=== PATIENT | female | born 1985 | race Caucasian/White ===

== ENCOUNTER 2017-10-06 14:53 | Emergency (ER) | END 2017-10-06 17:23 | disposition home or self-care (01) ==

== ENCOUNTER 2018-02-10 09:23 | Outpatient (CLI) | END 2018-02-10 11:50 | disposition home or self-care (01) ==

== ENCOUNTER 2018-03-16 18:15 | Outpatient (CLI) | END 2018-03-17 | disposition home or self-care (01) ==

== ENCOUNTER 2018-03-30 10:10 | Outpatient (CLI) | END 2018-03-30 15:20 | disposition home or self-care (01) ==

== ENCOUNTER 2018-05-02 01:22 | Inpatient (IN) | payer OTHER ==
[~2018-05-02] VITALS: Ht 160 cm; Wt 97.0 kg
[2018-05-02 01:36] VITALS: Ht 160 cm; Wt 97.0 kg
[2018-05-02 01:37] VITALS: BP 124/73; PULSE 86; RESP 16
[2018-05-02] MEDS ORDERED: LACTATED RINGER'S 1,000 ML IV PRN (01:48)
[2018-05-02] MEDS ORDERED: OXYTOCIN 30 UNITS/LR 500 ML IV PRN ×2 (02:00→22:30)
[2018-05-02] MEDS ORDERED: BUTORPHANOL 2 MG INJ IV PRN (02:00)
[2018-05-02] MEDS ORDERED: CARBOPROST 250 MCG INJ IM PRN ×2 (02:00→22:30)
[2018-05-02] MEDS ORDERED: METHYLERGONOVINE 0.2 MG INJ IM PRN ×2 (02:00→22:30)
[2018-05-02] MEDS ORDERED: AMPICILLIN 2 GM/NS (PMX) 100 ML IV ONE (02:00)
[2018-05-02] MEDS ORDERED: LIDOCAINE 1% (MPF) 30 ML INJ INJ PRN (02:00)
[2018-05-02] MEDS ORDERED: OXYTOCIN 30 UNITS/LR 500 ML IV SCH ×3 (02:00→22:28)
[2018-05-02] MEDS ORDERED: IBUPROFEN 600 MG TAB PO PRN (02:00)
[2018-05-02] MEDS ORDERED: MISOPROSTOL 200 MCG TAB PR PRN ×2 (02:00→22:30)
[2018-05-02] MEDS: LACTATED RINGER'S 1,000 ML IV SCH ×4 (02:28→21:44)
[2018-05-02] MEDS: AMPICILLIN 1 GM/NS (PMX) 50 ML IV SCH ×3 (07:16→14:00)
[2018-05-02] MEDS ORDERED: MINERAL OIL LIGHT 10 ML VIAL ONE (15:46)
[2018-05-02] MEDS ORDERED: MINERAL OIL LIGHT 10 ML VIAL TOP PRN (16:00)
--- NOTE | 2018-05-02 19:27 | PREOPHP ---
DATE OF ADMISSION: 05/02/2018 HISTORY OF PRESENT ILLNESS: Ms. Beronica Aguilar is a 32-year-old 5, para 3, EDC 05/04/2018, intrauterine at 39 weeks and 5 days gestational age, presented this md physician dermatologist complaining of contractions. She was found to be 4 cm dilated, 50% effaced, -2 station. She had an estimated weight of 4307 grams. The patient was counseled in detail the risk of increased shoulder dystocia. However, the patient declined and desires to attempt a vaginal delivery. She had her care at [facility]. PAST MEDICAL HISTORY: Obese. MEDICATIONS: vitamins. PAST SURGICAL HISTORY: None. OBSTETRICAL HISTORY: x3 vaginal delivery, x1 missed AB. GYNECOLOGIC HISTORY: 12, regular 3 to 4 days. Denies any sexually transmitted disease. Sexually active with 1 partner. SOCIAL HISTORY: Denies any smoking, drugs or alcohol. FAMILY HISTORY: None. REVIEW OF SYSTEMS: All within normal except history of present illness. PHYSICAL EXAMINATION: HEENT: Within normal. LUNGS: CTA bilateral. CARDIOVASCULAR: S1, S2, regular rate, rhythm. ABDOMEN: Gravid, nontender. Negative CVA bilateral. EXTREMITIES: Negative edema. No calf tenderness. PELVIC: Vaginal exam: 8 cm dilated, 80% effaced, -2 station. Artificial rupture of membranes, clear. heart tracing category 1. [place]: Occasional contractions. ASSESSMENT: Intrauterine at 39 weeks and 5 days gestational age, in labor with suspected macrosomia. The patient declined delivery. After the risks, benefits and alternatives explained including but not limited to risk of shoulder dystocia. PLAN: Anticipated vaginal delivery. Shoulder dystocia precautions. Dictated By: ANISH MANN/ENDER Conf#: [id number] DID#: [id number] MTDD
--- NOTE | 2018-05-02 21:25 | PREAC ---
Date/Time of Note Date/Time of Note DATE: 05/02/18 TIME: 21:24 Anesthesia Eval and Record Evaluation Time Pre-Procedure Interview DATE: 05/02/18 TIME: 21:24 Age 32 Sex female NPO: 8 hrs Preoperative diagnosis IUP Planned procedure L&D Past Medical History Past Medical History: None Surgery & Anesthesia Issues No known issue Meds Anticoagulation: No Beta Timothy within 24 hr: No Reason Beta Timothy not given: Pt. not on B-Timothy No Active Prescriptions or Reported Meds Current Medications Lactated Ringer's 1,000 ml @ 125 mls/hr Q8H IV Last administered on 05/02/18at 17:59; Admin Dose 125 MLS/HR; Start 05/02/18 at 01:48 Butorphanol Tartrate (Stadol) 2 mg Q2H PRN IV PAIN; Start 05/02/18 at 02:00 Lidocaine (Xylocaine 1% (Mpf)) 30 ml ONCE PRN INJ EPISIOTOMY; Start 05/02/18 at 02:00 Oxytocin/Lactated Ringer's 500 ml @ 500 mls/hr ONCE POST IV ; Start 05/02/18 at 02:00 Oxytocin/Lactated Ringer's 500 ml @ 125 mls/hr POST IV ; Start 05/02/18 at 02:00 Ibuprofen (Motrin) 600 mg ONCE PRN PO PAIN LEVEL 1-5; Start 05/02/18 at 02:00 Lactated Ringer's 1,000 ml @ 2,000 mls/hr Q30M PRN IV ANESTHESIA; Start 05/02/18 at 01:48 Oxytocin/Lactated Ringer's 500 ml @ 0 mls/hr ONCE PRN IV VAGINAL BLEEDING; Start 05/02/18 at 02:00 Methylergonovine Maleate (Methergine) 0.2 mg ONCE PRN IM VAGINAL BLEEDING; Start 05/02/18 at 02:00 Carboprost Tromethamine (Hemabate) 250 mcg ONCE PRN IM VAGINAL BLEEDING; Start 05/02/18 at 02:00 Misoprostol (Cytotec) 1,000 mcg ONCE PRN MI VAGINAL BLEEDING; Start 05/02/18 at 02:00 Mineral Oil (Muri-Lube) PRN PRN TOP Vaginal delivery; Start 05/02/18 at 16:00 Meds reviewed: Yes Allergies Coded Allergies: No Known Drug Allergy (Verified Allergy, Unknown, 10/02/11) Allergies Reviewed: Yes Labs/Studies Labs Reviewed: Reviewed by anesthesiologist Result Diagram: 05/02/18 0205 Laboratory Tests 05/02/18 02:05 Blood Bank Test 05/02/18 02:05 Antibody Screen NEGATIVE Blood Type B POSITIVE Rh Immune Globulin Candidate NO test: Positive Studies: ECG Pre-procedure Exam Last vitals Vital Signs Date Temp Pulse Resp B/P (MAP) Pulse Ox O2 O2 Flow FiO2 Time Delivery Rate 05/02/18 97.9 86 16 124/73 Room Air 01:37 (90) Airway: Adequate mouth opening, Adequate thyromental dist Mallampati: Mallampati II Teeth: Normal Lung: Normal Heart: Normal ASA Physical Status ASA physical status: 2 Emergency: None Planned Anesthetic Neuraxial: Epidural Planned Pain Management Epidural Pre-operative Attestations Prior to commencing anesthesia and surgery, the patient was re-evaluated, there was verification of: *The patient's identity *The results of appropriate recent lab work and preoperative vital signs *The above evaluation not changing prior to induction *Anesthetic plan, risk benefits, alternative and complications discussed with patient/family; questions answered; patient/family understands, accepts and wishes to proceed. CIRILO GARCIA MD May 02, 2018 21:25
[2018-05-02] MEDS ORDERED: FENTAnyl 2MCG/ML-ROPIV 0.2% 100 ML ONE (21:27)
[2018-05-02] MEDS ORDERED: DIPHENHYDRAMINE 50 MG INJ IV PRN (21:30)
[2018-05-02] MEDS ORDERED: ONDANSETRON 4 MG INJ IV PRN ×2 (21:30→22:30)
[2018-05-02] MEDS ORDERED: NALOXONE (0.4 MG/ML) INJ IV PRN (21:30)
[2018-05-02] MEDS ORDERED: FENTAnyl 2MCG/ML-ROPIV 0.2% 100 ML BAG EPI SCH (21:30)
--- NOTE | 2018-05-02 22:28 | LDN ---
Date/Time of Note Date/Time of Note DATE: 05/02/18 TIME: 22:27 Delivery Summary Weeks of Gestation 39 Placenta Delivered: Spontaneously Meconium: none Episiotomy: No Perineal laceration: 1 Laceration repair: 1st degree perineal laceration repair with 3-0 chromic Anesthesia type: Epidural Estimated blood loss: 250 Sponge & Needle done & correct: Yes All needle counts correct: Yes Any foreign bodies felt in the: No Delivery Information Sex Infant Sex: female Apgars 1 Minute: 8 5 Minute: 9 Suctioning Nose & mouth suctioned at juanita: No Delee suction performed: No Umbilical Cord Umbilical cord with: 3 Vessels Cord presentations: no nuchal cord Cord Blood was obtained: Yes ANISH CHIN MD May 02, 2018 22:28
[2018-05-02] MEDS ORDERED: LANOLIN HPA 1 PKT TOP PRN (22:30)
[2018-05-02] MEDS ORDERED: NACL 0.9% 3 ML SYG IV SCH (22:30)
[2018-05-02] MEDS ORDERED: OXYCODONE/ASPIRIN (4.88/325) TAB PO PRN ×2 (22:30)
--- NOTE | 2018-05-02 23:22 | DELSUM ---
Delivery Summary A-C Datetime Report Generated by CPN: 05/02/2018 23:22 DELIVERY PERSONNEL Pharmaceutical Scientist: Newman, Coby MATERNAL INFORMATION Delivery Anesthesia: Epidural Medications in Delivery: 30 UNIT PITOCIN Delivery QBL (ml): 250 Placenta Cultured: No Maternal Complications: None LABOR SUMMARY EDC: 05/04/2018 00:00 No. Babies in Womb: 1 Attempted: No Labor Anesthesia: Epidural LABOR INFORMATION Reason for Induction: Not Applicable Onset of Labor: 05/02/2018 01:00 Complete Dilatation: 05/02/2018 22:02 Oxytocin: N/A Group B Beta Strep: Negative Antibiotics # of Doses: 0 Steroids Given: None Reason Steroids Not Administered: Not Applicable MEMBRANES Membranes Rupture Method: Artificial Rupture of Membranes: 05/02/2018 19:01 Length of Rupture (hr): 3.25 Amniotic Fluid Color: Clear Amniotic Fluid Amount: Copious Amniotic Fluid Odor: Normal STAGES OF LABOR Stage 1 hr: 21 Stage 1 min: 2 Stage 2 hr: 0 Stage 2 min: 14 Stage 3 hr: 0 Stage 3 min: 2 Total Time in Labor hr: 21 Total Time in Labor min: 18 VAGINAL DELIVERY Episiotomy: None Laceration Extension: First Degree Laceration Type: Perineal Laceration Repair: Yes Initial Vag Sponge Count: 10 Final Vag Sponge Count: 10 Initial Vag Sharps Count: 1 Final Vag Sharps Count: 2 Sponge Count Correct: Yes; Vaginal Sweep Performed Sharps Count Correct: Yes BABY A INFORMATION Delivery Date/Time: 05/02/2018 22:16 Method of Delivery: Vaginal Method of Delivery: Vaginal Born in Route : No : N/A Forceps: N/A Vacuum Extraction: N/A Shoulder Dystocia : N/A SHOULDER DYSTOCIA BABY A Delivery Date/Time: 05/02/2018 22:16 PRESENTATION/POSITION BABY A Presentation: Cephalic Cephalic Presentation: Vertex Vertex Position: Left Occipital Anterior Breech Presentation: N/A PLACENTA INFORMATION BABY A Placenta Delivery Time : 05/02/2018 22:18 Placenta Method of Delivery: Spontaneous Placenta Status: Delivered SCORES BABY A Heart Rate 1 min: >100 bpm Resp Effort 1 min: Good Cry Reflex Irritability 1 min: Cough/Sneeze/Pulls Away Muscle Tone 1 min: Active Motion Color 1 min: Blue/Pale Resuscitation Effort 1 min: Tactile Stimulation SCORE 1 MIN: 8 Heart Rate 5 min: >100 bpm Resp Effort 5 min: Good Cry Reflex Irritability 5 min: Cough/Sneeze/Pulls Away Muscle Tone 5 min: Active Motion Color 5 min: Body [place], Extremit Blue Resuscitation Effort 5 min: Tactile Stimulation SCORE 5 MIN: 9 INFORMATION BABY A Gestational Age at Delivery: 39.5 Gestational Status: Full Term- 39- 40.6 Weeks Outcome : Liveborn Infant Condition : Stable Sex: Female Infant Sex: Female IDENTIFICATION/MEDS BABY A ID Band Number: [id number] ID Band Location: Right Leg; Left Arm Sensor Applied: Yes Sensor Number: [id number] Sensor Location : Cord Clamp Vitamin K Given : Not Given Erythromycin Given: Not Given WEIGHT/LENGTH BABY A Infant Birthweight (gm): 4565 Weight (lb): 10 Weight (oz): 1 Length (in): 22.50 Infant Length (cm): 57.15 CORD INFORMATION BABY A No. Cord Vessels: 3 Nuchal Cord : N/A Cord Blood Taken: Yes Infant Suction: Mouth; Nose ASSESSMENT BABY A Complications: None Physical Findings at Delivery: Within Normal Limits Infant Respirations: Appears Normal Riding Double/ALS Called : No Care By: Jaime ALEGRE; NICU RT/RN Transferred To: Remains with Mother
[2018-05-03] VITALS (7 sets, daily range): BP systolic 105–148; BP diastolic 61–71; PULSE 64–90; RESP 17–20
[2018-05-03] MEDS: WITCH HAZEL/GLYCERIN PAD PR PRN ×2 (01:47→17:18)
--- NOTE | 2018-05-03 02:22 | PAC ---
Date/Time of Note Date/Time of Note DATE: 05/03/18 TIME: 02:21 Post-Anesthesia Notes Post-Anesthesia Note Last documented vital signs Vital Signs Date Temp Pulse Resp B/P (MAP) Pulse Ox O2 O2 Flow FiO2 Time Delivery Rate 05/03/18 98.6 74 18 141/67 Room Air 01:00 (91) Activity: WNL Respiratory function: WNL Cardiovascular function: WNL Mental status: Baseline Pain reasonably controlled: Yes Hydration appropriate: Yes Nausea/Vomiting absent: Yes Comments BP:110/56,pulse:78, spo2:100%, T:98,8 CIRILO GARCIA MD May 03, 2018 02:22
--- NOTE | 2018-05-03 04:19 | NUR ---
EOSS v/s stable, fundus firm & contracted, moderate lochia, voided 2x , pain controlled with norco & motrin po, bonding well with baby, for cbc today.
[2018-05-03] MEDS: IBUPROFEN 600 MG TAB PO SCH ×5 (05:45→23:31)
[2018-05-03] MEDS: SENNA/DOCUSATE NA (8.6MG/50MG) TAB PO SCH ×2 (09:00→22:03)
[2018-05-03] MEDS: MAGNESIUM HYDROXIDE 30ML CUP PO SCH ×2 (09:00→22:03)
[2018-05-03] MEDS ORDERED: BENZOCAINE 20% 56 ML SPRAY TOP PRN (17:30)
--- NOTE | 2018-05-03 17:56 | PN ---
Date/Time of Note Date/Time of Note DATE: 05/03/18 TIME: 17:55 OB Subjective Subjective Subjective PPD# 1 Patient is doing well. She denies nausea, vomiting, shortness of breath, chest pain, headache. She has been ambulating without difficulty, tolerating regular diet. Pain is well controlled on current medications OB Objective Objective Objective Vital Signs Date Temp Pulse Resp B/P (MAP) Pulse Ox O2 O2 Flow FiO2 Time Delivery Rate 05/03/18 98.3 84 18 105/61 16:05 (76) 05/03/18 Room Air 12:45 General: AAO X 3, comfortable, NAD, appropriate mood and affect. ABD: +BS. Soft, non-tender. Uterus 2 cm below umbilicus Flank: No CVA tenderness (B/L) LE: Mild edema. No clubbing, cyanosis, thigh or calf tenderness (B/L). Homans 'sign is negative OB Assessment/Plan Other plan: 32-year-old s/p normal vaginal delivery at 39 weeks and 5 days. PPD#1 - AF, VSS - Baby is doing well, at bed side. She is bonding well - Continue current management - PIPER LIZARRAGA May 03, 2018 17:56
--- NOTE | 2018-05-03 18:32 | NUR ---
EOSS: VSS, BREAST FEEDING WITH MINIMAL ASSISTANCE. FUNDUS REMAINS FIRM WITH SMALL AMOUNT OF LOCHIA. BONDING WELL WITH BABY. PT. ABLE TO DO SELF AND BABY CARE WITH MINIMAL ASSISTANCE.
[2018-05-04 03:30] VITALS: BP 110/56; PULSE 71; RESP 19
[2018-05-04] MEDS: IBUPROFEN 600 MG TAB PO SCH ×3 (05:37→18:14)
--- NOTE | 2018-05-04 05:48 | NUR ---
EOSS: vital signs stable,voiding without difficulty,lochia small amount,bonding well with her baby,pain controlled with motrin,hourly rounding and rounding every 30 minutes between [id number] maintained.
--- NOTE | 2018-05-04 08:01 | NUR ---
rn called dr. johansen and informed him btl consent form on chart. dr. johansen states pt. will have btl in 6 [address] clinic[address] dr. johansen states he will come later today to d/c pt. rn informed pt. of poc and she verbalizes understanding. h/l removed tip intact and no complications. pt. on demand. pt. denies any complaints and distress at this time.
[2018-05-04 08:30] VITALS: BP 102/59; PULSE 73; RESP 18
[2018-05-04] MEDS: SENNA/DOCUSATE NA (8.6MG/50MG) TAB PO SCH (10:04)
[2018-05-04] MEDS: MAGNESIUM HYDROXIDE 30ML CUP PO SCH (10:04)
[2018-05-04 12:31] VITALS: BP 103/54; PULSE 79; RESP 20
--- NOTE | 2018-05-04 14:05 | NUR ---
rn continue to do hourly rounding and pt. denies any distress at this time. pt. continues to breastfeed on demand. pt. expected to d/c home today. rn continue w/ rounding to do p.p. education
[2018-05-04 15:52] VITALS: BP 100/55; PULSE 72; RESP 20
--- NOTE | 2018-05-04 17:06 | PD.PPDC ---
SIFTING OPERATOR Discharge Instruction Condition Ydnko2Hg Patient Condition: Lyuox4b Fair Diet Imldp2Ra Diet: Xtikf0u Resume Regular Diet Activity/Restrictions [id number] Activity: [id number] Normal Activity May Shower [id number] Restrictions: [id number] No Exercising No Lifting No Driving No Sexual Activity Nothing in the Vagina No [place] No Tampons, douche Wound/Drain Care Instructions [id number] Wound/Drain Care Instructions: [id number] Wash with soap and water Keep clean and dry Follow-up Follow-up with Physician: 3, Week/Weeks Return to clinic for Gmiig2Vq ASSOCIATE PROFESSOR OF THEATRE Instructions: Kttax8m Fever greater than 101 Chills Worsening abdominal pain Excessive Vaginal Bleeding More than 2 pads per hour Unable to tolerate diet [id number] OB Instructions: Hlexr7u Breast Tenderness Depression Blurried Vision Headache [id number] Surgical Instructions: [id number] Incisional Drainage Incisional Redness ANISH CHIN MD May 04, 2018 17:05
--- NOTE | 2018-05-04 17:07 | DS ---
Date/Time of Note Date/Time of Note DATE: 05/04/18 TIME: 17:06 Obstetrical Discharge Record Final Diagnosis Final Diagnosis: Term delivered Vaginal Delivery Obstetrical Delivery: Spontaneous Condition on Discharge Physical Assessment Last Vitals: stable afebrile Voiding: Yes Bowel Movement: Yes Breast: Soft, non-tender, Filling Fundus: Firm Calf Tenderness: No Patient Condition: ANISH Newell MD May 04, 2018 17:07
--- NOTE | 2018-05-04 17:43 | NUR ---
full d/c instruction rvwd. w/ pt. and fob. reference to mother/baby booklet for instructions. pt. will f/u next week w/ dr. sarkar
--- NOTE | 2018-05-04 20:00 | NUR ---
Pt was d/c home with baby in stable condition.
== END 2018-05-04 20:00 | disposition home or self-care (01) | DRG 807 ==
LOC: OBT 01:22 → L-D 01:25 → OBT 01:45 → L-D 01:45 → PP1 23:54
PROVIDERS: ADMIT Obstetrics & Gynecology; ATTEND Obstetrics & Gynecology
PROC: 10E0XZZ Delivery of Products of Conception, External Approach (ICD-10-PCS; principal; 2018-05-02)
PROC: 0HQ9XZZ Repair Perineum Skin, External Approach (ICD-10-PCS; 2018-05-02)
DX: O36.63X0 Maternal care for excessive fetal growth, third trimester, not applicable or unspecified (principal); Z37.0 Single live birth; Z3A.39 39 weeks gestation of pregnancy; O70.0 First degree perineal laceration during delivery
CPT/HCPCS: 62319; 76815; 85025; 85610; 85730; 86592; 86850; 86900; 86901; 87340; 99464; G0463; J2210; J2590; J3010; J7120